=== PATIENT | female | born 1955 | race Caucasian/White ===

== ENCOUNTER 2018-03-29 11:08 | Emergency (ER) | payer OTHER ==
[~2018-03-29] VITALS: Ht 152.4 cm; Wt 92.5 kg
[2018-03-29] MEDS ORDERED: TRAMADOL HCL 50 MG TAB PO ONE (11:15)
--- NOTE | 2018-03-29 12:15 | Diagnostic Imaging Report ---
Exam: Head CT without contrast History: Trauma, fall Comparison studies: None Technique: Axial images were obtained from the skull base to the vertex. Coronal and sagittal images reconstructed from the axial data. Dose modulation, iterative reconstruction, and/or weight based adjustment of the mA/kV was utilized to reduce the radiation dose to as low as reasonably achievable. Radiation dose: Total DLP: 832 mGy*cm. Estimated effective dose: DLP x 0.015 Intravenous contrast: None Findings: Exam is somewhat limited by artifacts related to patient motion. In spite of this limitation: Scalp: No abnormalities. Bones: No fractures, blastic or lytic lesions. Brain sulci: Appropriate for age. Ventricles: No hydrocephalus. Extraocular dilatation of the frontal horn of the right lateral ventricle secondary to volume loss from adjacent chronic striatocapsular infarct. Extra-axial spaces: No masses, no fluid collection. Parenchyma: Note mass, acute hemorrhage or acute cortical vascular insults. Chronic right striatocapsular lacunar infarct with encephalomalacia. Sellar/suprasellar region: No abnormalities. Craniocervical junction: Patent foramen magnum. No Chiari one malformation. Incidental findings: Mild mucosal thickening in the left sphenoid sinus. IMPRESSION: Exam somewhat limited by motion artifacts. In spite of this limitation: 1. No acute abnormalities. 2. Chronic right striatocapsular lacunar infarct. Signed by: Dr. Sincere Hogan M.D. on 03/29/2018 12:12 PM
--- NOTE | 2018-03-29 13:11 | Diagnostic Imaging Report ---
Exam: Right Knee Series. History: Status post fall Comparison: None. Findings: 3 views of the right knee. There is mildly decreased bone mineralization. Negative for acute, displaced fracture or dislocation. Moderate to marked tricompartmental degenerative joint disease in the knee, with medial femorotibial joint space compartment narrowing, prominent marginal femoral, tibial and patellar osteophytes. No abnormal soft tissue calcification or mass. No suprapatellar effusion. Impression: 1. No acute abnormalities. 2. Moderate to marked tricompartmental degenerative joint disease of the knee. Signed by: Dr. Gurwinder French M.D. on 03/29/2018 1:08 PM
--- NOTE | 2018-03-29 13:18 | Diagnostic Imaging Report ---
Exam: Left Ankle Series. History: Status post fall Comparison: None. DISCUSSION: 3 views of the left ankle. There is markedly decreased bone mineralization, which limits evaluation of the bony structures. Linear lucency traversing the distal aspect of the medial malleolus seen predominantly in the oblique view. Rest of the bony structures is intact. Ankle mortise is preserved. 3 metallic U shaped nails are noted in the talus/calcaneus. A partially visualized plate and screw construct present in the first toe No abnormal soft tissue calcification or mass. Soft tissue swelling in the medial aspect of the ankle. IMPRESSION: 1. Markedly decreased bone mineralization limits evaluation of the bony structures. 2. Findings in the distal medial malleolus, with soft tissue swelling in the medial aspect of the ankle may represent a small avulsion fracture in the setting of trauma. Ligamentous calcification is a less likely consideration. The staff physician below has personally reviewed this exam on the date of dictation. Signed by: Dr. Gurwinder French M.D. on 03/29/2018 1:15 PM
--- NOTE | 2018-03-29 13:20 | Diagnostic Imaging Report ---
Exam: Left foot series, 3 views. Clinical History: Status post fall, pain Comparison: None. Findings: 3 views of the left foot. There is markedly decreased bone mineralization, which limits evaluation of the bony structures. Negative for acute, displaced fracture or dislocation. Degenerative changes in the midfoot/hindfoot joints and first toe interphalangeal joint Intact hardware in the talus/calcaneus and first toe. Impression: 1. Markedly decreased bone mineralization, which limits evaluation of bony structures. No acute, displaced fracture or dislocation in the foot, within the limitations of the study. Signed by: Dr. Gurwinder French M.D. on 03/29/2018 1:17 PM
[2018-03-29 13:53] VITALS: BP 144/88
== END 2018-03-29 14:50 | disposition home or self-care (01) ==
LOC: ER 11:08
DX: S82.65XA Nondisplaced fracture of lateral malleolus of left fibula, initial encounter for closed fracture (principal); W18.2XXA Fall in (into) shower or empty bathtub, initial encounter; Y93.E1 Activity, personal bathing and showering; Y92.002 Bathroom of unspecified non-institutional (private) residence as the place of occurrence of the external cause; I10 Essential (primary) hypertension; F41.9 Anxiety disorder, unspecified; K21.9 Gastro-esophageal reflux disease without esophagitis; G80.9 Cerebral palsy, unspecified; Z85.3 Personal history of malignant neoplasm of breast
CPT/HCPCS: 70450; 99284